=== PATIENT | female | born 1965 | race Caucasian/White ===

== ENCOUNTER 2018-03-10 12:52 | Day surgery (SDC) | payer OTHER ==
[2018-03-10 14:12] LABS: ADD MAN DIFF? NO
[2018-03-10 14:14] LABS: BASOPHILS % 0.5 % (0.0-2.0); EOSINOPHILS # 0.1 10^3/ul (0.0-0.5); EOSINOPHILS % 1.9 % (0.0-7.0); HEMATOCRIT 38.9 % (37.0-47.0); HEMOGLOBIN 12.8 g/dl (12.0-16.0); LYMPHOCYTES % 32.6 % (15.0-51.0); MEAN CORPUSCULAR HEMOGLOBIN 33.6 pg (29.0-33.0); MEAN CORPUSCULAR HGB CONC 32.9 g/dl (32.0-37.0); MEAN CORPUSCULAR VOLUME 102.1 fl (82.0-101.0); MEAN PLATELET VOLUME 8.7 fl (7.4-10.4); MONOCYTE # 0.5 10^3/ul (0.3-0.9); MONOCYTES % 7.2 % (0.0-11.0); NEUTROPHIL # 3.6 10^3/ul (1.6-7.5); NEUTROPHILS % 57.6 % (39.0-77.0); PLATELET COUNT 267 10^3/UL (140-415); RED BLOOD COUNT 3.81 10^6/ul (4.20-5.40); RED CELL DISTRIBUTION WIDTH 12.4 % (11.5-14.5)
[2018-03-10 14:14] LABS: WHITE BLOOD COUNT 6.2 10^3/ul (4.8-10.8)
[2018-03-10 14:35] LABS: ALANINE AMINOTRANSFERASE 23 IU/L (13-69); ALBUMIN 3.9 g/dl (3.3-4.9); ALKALINE PHOSPHATASE 75 IU/L (42-121); ANION GAP 13 (8-16); ASPARTATE AMINO TRANSFERASE 26 IU/L (15-46); BILIRUBIN,INDIRECT 0.6 mg/dl (0-1.1); BILIRUBIN,TOTAL 0.6 mg/dl (0.2-1.3); BLOOD UREA NITROGEN 14 mg/dl (7-20); CALCIUM 9.2 mg/dl (8.4-10.2); CARBON DIOXIDE 28 mmol/L (21-31); CHLORIDE 103 mmol/L (97-110); CREATININE 0.76 mg/dl (0.44-1.00); GLUCOSE 92 mg/dl (70-220); POTASSIUM 3.6 mmol/L (3.5-5.1); SODIUM 140 mmol/L (135-144); TOTAL PROTEIN 6.9 g/dl (6.1-8.1)
[2018-03-10 14:37] LABS: INR 0.83; PROTIME 11.5 Sec (11.9-14.9); PT RATIO 0.9
[2018-03-10] MEDS: LACTATED RINGER'S 1,000 ML IV (15:09)
[2018-03-10] MEDS ORDERED: LIDOCAINE 2% (SDV) 5 ML INJ (16:29)
[2018-03-10] MEDS ORDERED: MIDAZOLAM 1 MG/ML 2 ML INJ (16:29)
[2018-03-10] MEDS ORDERED: FENTAnyl 50 MCG/ML VIAL (16:29)
[2018-03-10] MEDS ORDERED: PROPOFOL 20 ML (16:29)
[2018-03-10] MEDS ORDERED: CEFAZOLIN 1 GM INJ (16:38)
[2018-03-10] MEDS ORDERED: ONDANSETRON 4 MG INJ (16:55)
[2018-03-10] MEDS ORDERED: DEXAMETHASONE 4 MG/ML 1 ML INJ (16:55)
[2018-03-10] MEDS ORDERED: ONDANSETRON 4 MG INJ IV (17:00)
[2018-03-10] MEDS ORDERED: HYDROmorphONE 1 MG/5 ML IV SYRINGE IV (17:00)
[2018-03-10] MEDS: CEFAZOLIN 2 GM/50 ML (PMX) 50 ML IVPB (17:00)
[2018-03-10] MEDS ORDERED: morphine (1 MG/ML) 10ML SYRINGE IV (17:00)
[2018-03-10] MEDS ORDERED: morphine 10 MG INJ (17:25)
[2018-03-10] MEDS: POLYMYXIN B 500000 UNIT INJ (17:27)
[2018-03-10] MEDS: HYDROmorphONE 1 MG/5 ML IV SYRINGE IV ×2 (19:05→19:51)
[2018-03-10] MEDS: morphine (1 MG/ML) 10ML SYRINGE IV ×2 (19:10→19:21)
[2018-03-10] MEDS: KETOROLAC 30 MG INJ IV (20:07)
== END 2018-03-10 20:38 | disposition home or self-care (01) ==
LOC: SDS 12:52
DX: S82.001D Unspecified fracture of right patella, subsequent encounter for closed fracture with routine healing (principal); W19.XXXD Unspecified fall, subsequent encounter
CPT/HCPCS: 27524; 71045; 73560; 73562; 80053; 84703; 85025; 85610; 85730; 93005